=== PATIENT | female | born 1980 | race African-American/Black ===

== ENCOUNTER 2016-07-27 19:14 | Inpatient (IN) | payer MEDICAID ==
[2016-07-27 20:52] VITALS: BP 140/77
[2016-07-27] MEDS ORDERED: QUEtiapine FUMARATE 100 MG TABLET PO PRN (21:00)
[2016-07-27] MEDS ORDERED: ZOLPIDEM TARTRATE 10 MG TABLET PO PRN (21:00)
[2016-07-27 22:23] VITALS: BP 147/90
[2016-07-28] MEDS: LORazepam 2 MG TABLET PO PRN (06:43)
[2016-07-28 08:21] LABS: BASOPHILS # (AUTO) 0.04 K/uL (0.00-0.20); BASOPHILS % (AUTO) 0.7 % (0.0-2.0); EOSINOPHILS # (AUTO) 0.04 K/uL (0.00-0.70); EOSINOPHILS % (AUTO) 0.67 % (1.0-6.0); HEMATOCRIT 40.3 % (36-46); HEMOGLOBIN 13.2 g/dL (12.0-16.0); LYMPHOCYTES # (AUTO) 2.1 K/uL (1.0-4.8); LYMPHOCYTES % (AUTO) 33.3 % (22.0-44.0); MEAN CORPUSCULAR HEMOGLOBIN 30.3 pg (26.0-34.0); MEAN CORPUSCULAR HGB CONC 32.8 G/dL (31.0-37.0); MEAN CORPUSCULAR VOLUME 92 fL (80-100); MONOCYTES # (AUTO) 0.3 K/uL (0.1-1.0); MONOCYTES % (AUTO) 5.2 % (2.0-9.0); NEUTROPHILS # (AUTO) 3.7 K/uL (1.8-7.7); NEUTROPHILS % (AUTO) 60.1 % (40.0-70.0); PLATELET COUNT (AUTO) 222 K/uL (150-450); RED BLOOD CELL COUNT(AUTO) 4.36 MIL/uL (4.00-5.20); RED CELL DISTRIBUTION WIDTH 13.3 % (11.5-14.5); WHITE BLOOD COUNT (AUTO) 6.2 K/uL (4.5-11.0)
[2016-07-28] MEDS: QUEtiapine FUMARATE 200 MG TABLET PO SCH ×2 (08:45→16:27)
[2016-07-28 09:04] LABS: ALANINE AMINOTRANSFERASE 19 U/L (12-78); ALBUMIN 4.1 g/dL (3.4-5.0); ANION GAP 11 mmol/L (8-16); ASPARTATE AMINOTRANSFERASE 17 U/L (15-37); BILIRUBIN,TOTAL 0.5 mg/dL (0.1-1.0); CALCIUM, TOTAL 9.3 mg/dL (8.8-10.5); CARBON DIOXIDE 28 mmol/L (22-29); CHLORIDE 100 mmol/L (98-107); CREATINE KINASE MB 1.5 ng/mL (0-5); CREATINE KINASE, TOTAL 216 U/L (26-192); CREATININE 0.81 mg/dL (0.60-1.30); GLOMERULAR FILTR. RATE CALC > 60 mL/min (>60); POTASSIUM 3.7 mmol/L (3.5-5.1); SODIUM SERUM 139 mmol/L (136-145); THYROID STIMULATING HORMONE 1.32 uIU/mL (0.36-3.74); TOTAL PROTEIN, SERUM 7.5 g/dL (6.4-8.2); UREA NITROGEN, BLOOD 14 mg/dL (7-18)
[2016-07-28] MEDS ORDERED: QUEtiapine FUMARATE 300 MG TABLET PO SCH (17:00)
[2016-07-28] MEDS ORDERED: IBUPROFEN 400 MG TABLET PO PRN (23:00)
[2016-07-28] MEDS ORDERED: ACETAMINOPHEN 325 MG TABLET PO PRN (23:00)
[2016-07-29] VITALS: BP 140/98
[2016-07-29] MEDS: QUEtiapine FUMARATE 300 MG TABLET PO SCH ×2 (08:41→17:00)
[2016-07-29] MEDS: LORazepam 2 MG TABLET PO PRN ×2 (08:41→12:48)
[2016-07-30] MEDS ORDERED: HALOPERIDOL LACTATE 5 MG/ML VIAL IM ONE (09:45)
[2016-07-30] MEDS ORDERED: LORazepam 2 MG/ML VIAL IM ONE (09:45)
[2016-07-30] MEDS ORDERED: DiphenhydrAMINE HCL 50 MG/ML VIAL IM ONE (09:45)
[2016-07-30] MEDS: QUEtiapine FUMARATE 300 MG TABLET PO SCH ×2 (09:51→17:03)
[2016-07-30] MEDS: AMOXICILLIN TRIHYDRATE 500 MG CAPSULE PO SCH ×3 (09:51→17:03)
[2016-07-30 10:04] VITALS: BP 139/100
[2016-07-30 16:14] VITALS: BP 144/63
[2016-07-31 05:15] VITALS: BP 140/88
[2016-07-31] MEDS ORDERED: LORazepam 2 MG/ML VIAL ONE (07:54)
[2016-07-31] MEDS ORDERED: DiphenhydrAMINE HCL 50 MG/ML VIAL ONE (07:55)
[2016-07-31] MEDS ORDERED: DiphenhydrAMINE HCL 50 MG/ML VIAL IM ONE (08:00)
[2016-07-31] MEDS ORDERED: HALOPERIDOL LACTATE 5 MG/ML VIAL IM ONE (08:00)
[2016-07-31] MEDS ORDERED: LORazepam 2 MG/ML VIAL IM ONE (08:00)
[2016-07-31] MEDS: QUEtiapine FUMARATE 300 MG TABLET PO SCH ×2 (08:18→16:43)
[2016-07-31] MEDS: AMOXICILLIN TRIHYDRATE 500 MG CAPSULE PO SCH ×3 (08:18→16:43)
[2016-07-31 09:05] VITALS: BP 118/76
[2016-08-01 06:44] VITALS: BP 130/80
[2016-08-01] MEDS: QUEtiapine FUMARATE 300 MG TABLET PO SCH ×3 (08:13→08:58)
[2016-08-01] MEDS: AMOXICILLIN TRIHYDRATE 500 MG CAPSULE PO SCH (08:13)
[2016-08-01] MEDS ORDERED: QUET300T2 PO (08:54)
[2016-08-01] MEDS ORDERED: AMOX250C4 PO (08:54)
[2016-08-01] MEDS ORDERED: CLOTRIMAZOLE 1% 15 GM CREAM TP SCH (09:00)
== END 2016-08-01 10:15 | disposition home or self-care (01) | DRG 753 ==
LOC: EDSTATUS 19:35 → B3A 20:54
PROVIDERS: ADMIT Psychiatry & Neurology Psychiatry; ATTEND Psychiatry & Neurology Psychiatry
DX: F31.2 Bipolar disorder, current episode manic severe with psychotic features (principal); I10 Essential (primary) hypertension; F25.9 Schizoaffective disorder, unspecified
CPT/HCPCS: 84443; J1200; J1630; J2060